=== PATIENT | female | born 1995 | race Caucasian/White ===

== ENCOUNTER 2018-03-21 10:22 | Emergency (ER) | payer OTHER ==
[2018-03-21 11:31] VITALS: BP 99/57
[2018-03-21] MEDS ORDERED: Fluorescein Sod TOPICAL 0.6* 0.6 MG TEST OPHTHALMIC ONE (11:32)
[2018-03-21] MEDS ORDERED: Tetracaine 0.5% OPTH.SOL 4 ML* 1 DROP BTL ONE (11:33)
[2018-03-21] MEDS ORDERED: BSS OPTH.SOL* BTL ONE (11:33)
--- NOTE | 2018-03-21 12:04 | UC ---
Eye Complaint HPI - HPI Summary HPI Summary: C/O left eye irritation, swelling and itching over the last 3 day. Does use contact lenses. - History of Current Complaint Chief Complaint: UCEye Stated Complaint: ITCHY,SWOLLEN R EYE Time Seen by Provider: 03/21/18 11:57 Hx Obtained From: Patient Hx Last Menstrual Period: 03/19/18 ?: No Onset/Duration: Sudden Onset - 3 days., Still Present Timing: Constant Severity Initially: Mild Severity Currently: Mild Pain Intensity: 0 Location of Injury: Conjunctiva Aggravating Factor(s): Blinking Alleviating Factor(s): Nothing Associated Signs And Symptoms: Positive: Drainage (Clear), Swelling Related History: Similar Episode - Chunky eye - Allergies/Home Medications Allergies/Adverse Reactions: Allergies Allergy/AdvReac Type Severity Reaction Status Date / Time Sulfa (Sulfonamide Allergy Hives Verified 03/21/18 11:25 Antibiotics) Home Medications: Home Medications Ethinyl Estradiol/Drospirenone [Loryna 3 mg-0.02 mg Tablet] 1 each PO DAILY [History Confirmed 03/21/18] PMH/Surg Hx/FS Hx/Imm Hx Previously Healthy: Yes - Surgical History Surgical History: Yes Surgery Procedure, Year, and Place: Cranial Stenosis, ~1996 - Family History Known Family History: Negative: Cardiac Disease, Hypertension, Diabetes - Social History Occupation: Student Lives: Dormitory/Roommates Alcohol Use: Weekly Substance Use Type: None Smoking Status (MU): Never Smoked Tobacco Review of Systems Eyes: Drainage, Eye Redness Is Patient Immunocompromised?: No All Other Systems Reviewed And Are Negative: Yes Physical Exam Triage Information Reviewed: Yes Appearance: Well-Appearing, No Pain Distress, Well-Nourished Vital Signs: Initial Vital Signs Temp 98 F 03/21/18 11:23 Pulse 80 03/21/18 11:23 Resp 16 03/21/18 11:23 BP 99/57 03/21/18 11:23 Pulse Ox 99 03/21/18 11:23 Vital Signs Reviewed: Yes Eyes: Positive: Conjunctiva Clear ENT: Positive: Pharynx normal, Nasal congestion - with allergic changes, TMs normal Dental Exam: Normal Neck exam: Normal Respiratory Exam: Normal Cardiovascular Exam: Normal Musculoskeletal Exam: Normal Neurological Exam: Normal Psychological Exam: Normal Skin Exam: Normal Eye Complaint Course/Dx - Differential Dx/Diagnosis Differential Diagnosis/HQI/PQRI: Conjunctivitis, Keratitis, Uveitis Provider Diagnoses: Bilateral acute viral conjunctivitis Discharge - Sign-Out/Discharge Documenting (check all that apply): Discharge/Admit/Transfer - Discharge Plan Condition: Stable Disposition: HOME Prescriptions: Erythromycin OPTH OINT* [Erythromycin 0.5% OPTH OINT*] 1 applic BOTH EYES TID # 7 gm Patient Education Materials: Conjunctivitis (ED), Erythromycin (Into the eye) Referrals: Non Staff,Doctor [Primary Care Provider] - Additional Instructions: DO NOT WEAR YOUR CONTACTS UNTIL ALL ITCHING/ REDNESS AND DRAINAGE HAVE RESOLVED. EYE OINTMENT USE: Wash hands. Place 1/4" strip across tip of finger. Pull lower lid down with the index finger and stabilize the ointment finger with the middle finger and scrape the ointment off on the lid. Pull the lid out and let go as you look down. - Billing Disposition and Condition Condition: STABLE Disposition: HOME
== END 2018-03-21 12:25 | disposition home or self-care (01) ==
LOC: UCCORT 10:22
DX: H10.33 Unspecified acute conjunctivitis, bilateral (principal); Z88.2 Allergy status to sulfonamides
CPT/HCPCS: 99202; A9270-GY; G0463